=== PATIENT | female | born 1955 | race Caucasian/White ===

== ENCOUNTER 2021-06-14 09:41 | Inpatient (IN) | payer MEDICARE ==
[~2021-06-14] VITALS: Ht 163 cm; Wt 62.4 kg
[~2021-06-14 09:41] MED LIST: 3IN1 COMMODE XX; ATARAX25 MG PO; ATIVAN0.5 MG PO; FEOSOL325 MG PO; FLORANEX TABLE1 EACH PO; FUROSEMIDE 20MG20 MG PO; LEVAQUIN500 MG PO; MEGACE ORA6 TSP/1 OZ PO; MICON-GUARD 2% TOP; NICOTINE PATCH1 EAC2 TD; OXYBUTYNIN CHLOR5 M1 PO; OXYCODONE-ACET1 EAC1 PO; POTASSIUM CHLO20 ME2 PO; PRILOSEC20 MG PO; PULMICORT0.5 MG/2 M NEB; SPIRIVA RESPIMAT4 G1 INH; ULTRA-LIGHT RO1 EACH XX; VENTOLIN (2.5 MG/3 M INH; XARELTO10 MG PO
[2021-06-14 11:34] LABS: BASOPHIL 0.5 % (0-2); EOSINOPHIL 0.3 % (0-5); HCT 48.1 % (37.0-47.0); HGB 17.2 g/dl (12.5-16.0); LYMPHOCYTE 9.4 % (15-48); MCH 32.7 pg (25.0-31.0); MCHC 35.8 g/dL (32.0-36.0); MCV 91.4 fL (78.0-100.0); MONOCYTE 5.4 % (0-12); MPV 9.9 fL (6.0-9.5); NEUTROPHIL 83.8 % (41-80); NRBC 0; PLT 162 K/uL (150-400); RBC 5.26 M/uL (4.20-5.40); RDW 12.5 % (11.5-14.0); WBC 10.2 K/uL (4.0-10.5)
[2021-06-14 11:54] LABS: ALBUMIN 3.4 g/dL (3.4-5.0); BILIRUBIN - TOTAL 1.1 mg/dL (0.2-1.0); BUN/CREAT RATIO (CALC) 7.7 RATIO; CREATININE 0.39 mg/dL (0.51-0.95); GLOBULIN (CALCULATION) 3.9 g/dL; TOTAL PROTEIN 7.3 g/dL (6.4-8.2)
[2021-06-14 12:13] LABS: BILIRUBIN NEGATIVE (NEGATIVE); BLOOD TRACE-INTACT Ery/uL (NEGATIVE); CLARITY CLEAR (CLEAR); COLOR YELLOW (YELLOW); GLUCOSE (U) NORMAL (NORMAL); LEUKOCYTES NEGATIVE Leu/uL (NEGATIVE); NITRITE NEGATIVE (NEGATIVE); PROTEIN NEGATIVE (NEGATIVE); UROBILINOGEN 0.2 mg/dL (0.2-1.0); pH 5.5 (5.0-9.0)
[2021-06-14 12:21] LABS: BACTERIA 2+
[2021-06-14 12:22] LABS: SQUAMOUS EPITHELIAL CELLS RARE; URINARY RBC RARE; URINARY WBC RARE
[2021-06-14 13:18] LABS: INR 1.02 (0.9-1.2); PROTHROMBIN TIME 12.8 SECONDS (11.8-13.4); PTT 29.7 SECONDS (24.4-34.7)
--- NOTE | 2021-06-14 16:07 | NUR ---
PATIENT WITH BLOOD LOOKING EMESIS FROM ER, SPOKE WITH DR JARQUIN ABOUT THIS, SENT FOR GASSTROCCULT WHICH WAS POSITIVE, HE ASSESSED PATIENT AND TRANSFER ORDERS FOR TCU IN PLACE, CALLED AND PATIENT GAVE PERMISSION TO UPDATE AND HE WAS INFORMED OF THIS
[2021-06-14 20:36] LABS: HCT 49.9 % (37.0-47.0); HGB 17.5 g/dl (12.5-16.0); MCH 32.8 pg (25.0-31.0); MCHC 35.1 g/dL (32.0-36.0); MCV 93.4 fL (78.0-100.0); MPV 9.8 fL (6.0-9.5); RBC 5.34 M/uL (4.20-5.40); RDW 12.8 % (11.5-14.0); WBC 13.6 K/uL (4.0-10.5)
[2021-06-15 06:52] LABS: HCT 47.6 % (37.0-47.0); HGB 16.5 g/dl (12.5-16.0); MCH 32.9 pg (25.0-31.0); MCHC 34.7 g/dL (32.0-36.0); MPV 10.5 fL (6.0-9.5); RBC 5.01 M/uL (4.20-5.40); RDW 13.1 % (11.5-14.0); WBC 7.4 K/uL (4.0-10.5)
[2021-06-15 07:14] LABS: CREATININE 0.75 mg/dL (0.51-0.95); POTASSIUM 4.7 mmol/L (3.5-5.1)
[2021-06-16 04:17] LABS: BASOPHIL 0.3 % (0-2); HCT 40.5 % (37.0-47.0); HGB 13.6 g/dl (12.5-16.0); LYMPHOCYTE 12.5 % (15-48); MCH 32.6 pg (25.0-31.0); MCHC 33.6 g/dL (32.0-36.0); MCV 97.1 fL (78.0-100.0); MONOCYTE 5.6 % (0-12); MPV 10.3 fL (6.0-9.5); NEUTROPHIL 80.4 % (41-80); NRBC 0; PLT 102 K/uL (150-400); RBC 4.17 M/uL (4.20-5.40); RDW 13.2 % (11.5-14.0); WBC 5.9 K/uL (4.0-10.5)
[2021-06-16 04:31] LABS: CREATININE 0.63 mg/dL (0.51-0.95); MAGNESIUM 2.5 mg/dL (1.8-2.4)
[2021-06-17 07:48] LABS: BASOPHIL 0.3 % (0-2); EOSINOPHIL 0.5 % (0-5); HGB 11.5 g/dl (12.5-16.0); LYMPHOCYTE 11.5 % (15-48); MCH 32.7 pg (25.0-31.0); MCHC 33.8 g/dL (32.0-36.0); MCV 96.6 fL (78.0-100.0); MONOCYTE 9.3 % (0-12); MPV 10.5 fL (6.0-9.5); NEUTROPHIL 77.9 % (41-80); NRBC 0; PLT 106 K/uL (150-400); RBC 3.52 M/uL (4.20-5.40); RDW 13.2 % (11.5-14.0); WBC 6.3 K/uL (4.0-10.5)
[2021-06-17 07:56] LABS: BUN/CREAT RATIO (CALC) 21.2 RATIO; CREATININE 0.52 mg/dL (0.51-0.95); POTASSIUM 4.2 mmol/L (3.5-5.1)
[2021-06-18 08:22] LABS: BASOPHIL 0.2 % (0-2); EOSINOPHIL 1.2 % (0-5); HCT 31.9 % (37.0-47.0); HGB 10.8 g/dl (12.5-16.0); LYMPHOCYTE 14.8 % (15-48); MCH 32.6 pg (25.0-31.0); MCHC 33.9 g/dL (32.0-36.0); MCV 96.4 fL (78.0-100.0); MONOCYTE 12.9 % (0-12); MPV 9.6 fL (6.0-9.5); NEUTROPHIL 70.4 % (41-80); NRBC 0; PLT 112 K/uL (150-400); RBC 3.31 M/uL (4.20-5.40); RDW 13.2 % (11.5-14.0); WBC 4.1 K/uL (4.0-10.5)
[2021-06-18 08:45] LABS: ALBUMIN 1.9 g/dL (3.4-5.0); CREATININE 0.5 mg/dL (0.51-0.95); TOTAL PROTEIN 4.9 g/dL (6.4-8.2)
[2021-06-18 08:46] LABS: MAGNESIUM 1.9 mg/dL (1.8-2.4)
--- NOTE | 2021-06-18 14:57 | NUR ---
MET WITH PT. THIS DATE. PT REQUESTED HER FIRST CHOICE, [facility]. CONTACTED RAFIQ AT [facility]. SHE ADVISED THAT [facility] DOES NOT TAKE SOMEONE WHO REQUIRES DAILY BEERS. ADVISED MS. STRANGE AND SHE STATED THAT SHE HAS NO PREFERENCE. ADVISED HER THAT [facility] DOES NOT TAKE ANTHEM. BUT I WILL SEND TO SIGNATURE, [facility]. PT. EXPRESSED UNDERSTANDING WITH THE SITUATION.
[2021-06-19 04:28] LABS: BASOPHIL 0.7 % (0-2); EOSINOPHIL 1.4 % (0-5); HCT 31.4 % (37.0-47.0); HGB 10.7 g/dl (12.5-16.0); LYMPHOCYTE 19.7 % (15-48); MCH 32.7 pg (25.0-31.0); MCHC 34.1 g/dL (32.0-36.0); MONOCYTE 12.8 % (0-12); MPV 9.7 fL (6.0-9.5); NEUTROPHIL 64.9 % (41-80); NRBC 0; PLT 104 K/uL (150-400); RBC 3.27 M/uL (4.20-5.40); RDW 13.3 % (11.5-14.0); WBC 4.3 K/uL (4.0-10.5)
[2021-06-19 04:55] LABS: BUN/CREAT RATIO (CALC) 17.3 RATIO; CREATININE 0.52 mg/dL (0.51-0.95); POTASSIUM 3.8 mmol/L (3.5-5.1)
--- NOTE | 2021-06-19 10:59 | NUR ---
ALL SIGNATURE FACILITIES HAVE DECLINED PATIENT DUE TO THE BEER BEING ORDERED. SENT REFERRAL TO MARGARETH AT [facility].
--- NOTE | 2021-06-20 08:44 | NUR ---
ATUL ZULUAGA AT [facility]. SHE ADVISED THAT THEY WILL ACCEPT PT AND THE DR WILL ORDER ONE BEER A DAY, BUT THAT PT CAN SMOKE 4 TIMES A DAY. ADVISED NITHYA OF THIS INFORMATION. NITHYA WOULD LIKE TO WAIT UNTIL FRIDAY TO [place]. ADVISED DR. QUEEN AND HE WILL SPEAK WITH PT.
[2021-06-20] MEDS ORDERED: OXYCODONE-ACET1 EAC1 PO (12:12)
[2021-06-20] MEDS ORDERED: ATIVAN0.5 MG PO (12:12)
[2021-06-20] MEDS ORDERED: BEER PO (12:12)
--- NOTE | 2021-06-20 12:19 | NUR ---
PT HAS BEEN ACCEPTED CLINICALLY AT [facility], BUT THEY WILL NEED PRECERT FOR INSURANCE. PT IS WILLING TO GO TO [facility] AND HAS SIGNED CHOICE FORM. SPOKE WITH PT PER REQUEST OF PT. ADVISED HIM OF THE THINGS PT WILL NEED [facility] THE [facility].
--- NOTE | 2021-06-20 12:27 | NUR ---
REPORT NUMBER FOR [facility] - [phone] FAX FOR D/C SUMMARY IS [phone].
[2021-06-21 05:47] LABS: BASOPHIL 0.6 % (0-2); EOSINOPHIL 1.8 % (0-5); HCT 29.7 % (37.0-47.0); HGB 10.1 g/dl (12.5-16.0); LYMPHOCYTE 20.3 % (15-48); MCH 32.6 pg (25.0-31.0); MCV 95.8 fL (78.0-100.0); MONOCYTE 14.8 % (0-12); MPV 10.1 fL (6.0-9.5); NEUTROPHIL 61.7 % (41-80); NRBC 0; PLT 165 K/uL (150-400); RDW 13.3 % (11.5-14.0); WBC 4.9 K/uL (4.0-10.5)
[2021-06-21 06:40] LABS: BUN/CREAT RATIO (CALC) 29.8 RATIO; CREATININE 0.47 mg/dL (0.51-0.95); POTASSIUM 4.1 mmol/L (3.5-5.1)
--- NOTE | 2021-06-22 09:00 | NUR ---
LATE ENTRY FROM 06/21/2021. [facility] & IS NOT IN NETWORK WITH PT INSURANCE. PT. WAS WILLING TO SUBMIT TO ANY FACILITY AT THIS TIME. SUBMITTED TO [facility], [facility], [facility], [facility]), [facility], [facility], [facility], [facility], [facility]. [facility] HAS BEEN THE ONLY FACILITY TO ACCEPT PT AND WILL SUBMIT HER INSURANCE. ADVISED PT AND SHE WAS AGREEABLE TO GO TO [facility]. KATIE AT [facility] WILL SUBMIT TO INSURANCE.
--- NOTE | 2021-06-22 12:54 | NUR ---
TC FROM NADEEM AT [facility] SHE ADVISED THAT [facility] HAS CALLED FOR AN OT NOTE. ADVISED HER THAT I WOULD CONTACT THE THERAPIST FOR THE REPORT. TC TO KELLIE OT. SHE STATED THAT THE PT HAD REFUSED HER YESTERDAY AND THAT SHE SHOULD HAVE DISCHARGED HER. I ASKED IF SHE WOULD SEE HER TODAY ADEN,PT SAW HER EARLIER AND SHE COOPERATED WITH HIM. KELLIE STATED THAT SHE DIDN'T HAVE TIME SHE HAD TO GO TO [place]OUND[place]. I ASKED IF SHE COULD SKIP ROUNDING AND SEE THE PT. BUT KELLIE ADVISED THAT WASN'T AN OPTION. KELLIE DID STATED THAT SHE WOULD SEE PT AFTER ROUNDING.
--- NOTE | 2021-06-22 12:57 | NUR ---
KELLIE SAW THE PT AND PUT IN THE OT NOTE. FAXED THE OT NOTE TO [facility] AND CALLED NADEEM TO ADVISE THE FAX WAS ON THE WAY.
--- NOTE | 2021-06-22 14:55 | NUR ---
IT PT. IS APPROVED BY INSURANCE SHE WILL NEED A RAPID COVID TEST. THE REPORT NUMBER TO [facility] IS [phone] EXT. [phone] FAX NUMBER FOR DC SUMMARY IS [phone].
[2021-06-22] MEDS ORDERED: BEER PO (16:02)
[2021-06-22] MEDS ORDERED: PROTONIX 40MG T40 MG PO (16:16)
--- NOTE | 2021-06-22 18:09 | NUR ---
REPORT CALLED TO [facility] FOR [facility]SFER. EMS NOTIFIED OF NEED FOR TRANSPORT.
--- NOTE | 2021-06-22 20:15 | NUR ---
PT. DISCHARGED AND LEFT VIA EMS AT 194 TO GO TO [facility]. VITALS WERE DONE AT 1930 AND WERE FOLLOWS: 120/78, 86, 98.4, 19, 97% RA. PT WAS STABLE AT TIME OF DEPARTURE. IV HAD BEEN REMOVED. REPORT WAS GIVEN TO [facility] ACEVEDO BY OLGA ACEVEDO. ER,RN
== END 2021-06-22 19:59 | DRG 521 ==
LOC: FER 09:41 → FTCU 11:45 → FMS 11:45 → FTCU 15:02 → FMS 06-22 07:37
PROVIDERS: Allergy & Immunology Allergy; Emergency Medicine; Internal Medicine; Legal Medicine; Student in an Organized Health Care Education/Training Program; ADMIT Hospitalist
PROC: HZ2ZZZZ Detoxification Services for Substance Abuse Treatment (ICD-10-PCS; principal; 2021-06-14)
PROC: 0DJ08ZZ Inspection of Upper Intestinal Tract, Via Natural or Artificial Opening Endoscopic (ICD-10-PCS; 2021-06-15)
PROC: 0SRB03Z Replacement of Left Hip Joint with Ceramic Synthetic Substitute, Open Approach (ICD-10-PCS; 2021-06-16)
DX: S72.002A Fracture of unspecified part of neck of left femur, initial encounter for closed fracture (principal); K29.71 Gastritis, unspecified, with bleeding; E87.1 Hypo-osmolality and hyponatremia; K76.6 Portal hypertension; R71.0 Precipitous drop in hematocrit; F10.139 Alcohol abuse with withdrawal, unspecified; J44.9 Chronic obstructive pulmonary disease, unspecified; F17.210 Nicotine dependence, cigarettes, uncomplicated; Z20.822 Contact with and (suspected) exposure to COVID-19; Z96.641 Presence of right artificial hip joint; F10.120 Alcohol abuse with intoxication, uncomplicated; K74.60 Unspecified cirrhosis of liver; I95.9 Hypotension, unspecified; Z98.890 Other specified postprocedural states; Z88.5 Allergy status to narcotic agent; Z79.01 Long term (current) use of anticoagulants; Z79.899 Other long term (current) drug therapy; W01.0XXA Fall on same level from slipping, tripping and stumbling without subsequent striking against object, initial encounter; Z98.51 Tubal ligation status; Z98.41 Cataract extraction status, right eye; Z98.42 Cataract extraction status, left eye; Y90.4 Blood alcohol level of 80-99 mg/100 ml
CPT/HCPCS: 36415; 71045; 73501; 73502; 74018; 76000; 80048; 80053; 81001; 82271; 83605; 83735; 85025; 85610; 85730; 93005; 94010; 94640; 97110; 97162; 97166; 97530-GP; 97535; C1713; C1776; C9113; G0480; J0171; J0696; J0697; J1100; J1170; J1650; J1885; J2060; J2354; J2370; J2405; J2704; J2795; J3010; J3411; J3475; J7030; J7120; Q9967; U0002